=== PATIENT | female | born 1965 | race Caucasian/White ===

== ENCOUNTER 2024-01-26 18:16 | Inpatient (IN) | payer BC, MEDICAID ==
[~2024-01-26] VITALS: Ht 170.2 cm; Wt 96.1 kg
[~2024-01-26 18:16] MED LIST: ESTR0.1C5 VA; LEVO25TA9; LISI10TA34; MAGNTAB10; PROZAC; TRAZADONE
[2024-01-26 19:06] VITALS: RESP 24; O2SAT 93
[2024-01-26 19:19] LABS: Basophils # (auto) 0.1 10 ^3/uL (0-0.2); Basophils % (auto) 1.5 % (0.0-2.0); Eosinophils # (auto) 0.1 10 ^3/uL (0-0.8); Eosinophils % (auto) 1.8 % (0.0-7.0); Hemoglobin 10.2 g/dL (12.2-16.2); Lymphocytes # (auto) 1.4 10 ^3/uL (0.4-5.4); Lymphocytes % (auto) 23.7 % (10.0-50.0); Mean Corpuscular Hemoglobin 28.5 pg (28.0-32.0); Mean Corpuscular Hgb Conc. 31.8 g/dL (32.0-36.0); Mean Corpuscular Volume 89.7 fL (80.0-100.0); Monocytes # (auto) 0.7 10 ^3/uL (0-1.3); Monocytes % (auto) 11.7 % (0.0-12.0); Neutrophils # (auto) 3.7 10 ^3/uL (1.6-8.6); Neutrophils % (auto) 61.3 % (37.0-80.0); Nucleated Red Blood Cells % 0.5 %; Red Blood Cells 3.57 10^6/uL (4.0-5.20); White Blood Cell 6.1 10^3/uL (4.4-10.8)
[2024-01-26 19:26] LABS: Chloride 112 mmol/L (98-107); Potassium 3.3 mmol/L (3.5-5.1); Sodium 139 mmol/L (136-145)
[2024-01-26 19:27] LABS: Anion Gap 12 (5-15); Carbon Dioxide 15 mmol/L (20-30)
[2024-01-26 19:32] LABS: BUN/Creatinine Ratio 12.1 (10.0-20.0); Blood Urea Nitrogen 49 mg/dL (9-23); Glucose 86 mg/dL (74-106)
[2024-01-26 19:39] LABS: Calcium 5.4 mg/dL (8.7-10.4)
[2024-01-26] MEDS: ALBUTEROL SULF 2.5 MG/0.5ML(0.5%) NEB SOLN NEB ONE (19:42)
[2024-01-26] MEDS: IPRATROPIUM BROM 0.5 MG/2.5ML INH SOL NEB ONE (19:43)
[2024-01-26 20:00] VITALS: PULSE 71; RESP 16; O2SAT 90
[2024-01-26] MEDS: AZITHROMYCIN 250 MG TAB PO ONE (20:20)
[2024-01-26] MEDS: cefTRIAXone 1GM/50ML D5W 50 ML IV ONE (20:21)
[2024-01-26] MEDS: methylPREDNISolone SOD SUCC 125 MG/2 ML VL IV ONE (20:21)
[2024-01-26] MEDS ORDERED: ONDANSETRON HCL 4 MG/2 ML VIAL IV PRN (21:30)
[2024-01-26] MEDS ORDERED: ACETAMINOPHEN 325 MG TAB PO PRN (21:30)
[2024-01-26] MEDS ORDERED: MORPHINE SULFATE INJ 2 MG/ml SYRG IV PRN (21:30)
[2024-01-26] MEDS ORDERED: NITROGLYCERIN 0.4 MG SL TAB SL PRN (21:30)
[2024-01-26] MEDS ORDERED: DOCUSATE SOD 100 MG CAP PO PRN (21:30)
[2024-01-26] MEDS: CALCIUM GLUC 1,000mg/50ml-NS 50 ML IV SCH (21:51)
[2024-01-26 22:09] VITALS: BP 120/77; PULSE 72; RESP 18; TEMP 99; O2SAT 93
[2024-01-26] MEDS ORDERED: MORPHINE SULFATE 4 MG/ML SYR/VIAL IV PRN (22:30)
[2024-01-27 01:25] VITALS: PULSE 75; RESP 20; O2SAT 92
[2024-01-27 01:35] LABS: Base Excess -14.7 mmol/L (-2.0-2.0)
[2024-01-27] MEDS: BUMETANIDE 2.5mg/10ml (0.25 mg/ml) INJ IV ONE (02:32)
[2024-01-27 02:39] LABS: Urine Bacteria FEW /hpf (None Seen); Urine Blood 1+ /uL (Negative); Urine Clarity Ex.Turbid (Clear); Urine Color Light-Brown (Yellow); Urine Protein, UAD 1+ (Negative); Urine Specific Gravity 1.007 (1.001-1.035); Urine Urobilinogen Normal (Negative); Urine WBC 380 /hpf (0 - 5); Urine WBC Clumps PRESENT /hpf (None Seen); Urine pH 5.5 (5.0-9.0)
[2024-01-27] MEDS: SODIUM BICARB 50mEq/50ml Vial 100 ML in D5W 5% 1,000 ML IV ONE (02:44)
[2024-01-27] MEDS: SODIUM BICARB 8.4% 50Meq/50ml SYR Vial IV ONE ×2 (02:45)
[2024-01-27 03:11] LABS: Basophils # (auto) 0 10 ^3/uL (0-0.2); Basophils % (auto) 0.2 % (0.0-2.0); Eosinophils # (auto) 0 10 ^3/uL (0-0.8); Eosinophils % (auto) 0.1 % (0.0-7.0); Hemoglobin 10.4 g/dL (12.2-16.2); Lymphocytes # (auto) 0.3 10 ^3/uL (0.4-5.4); Lymphocytes % (auto) 8.9 % (10.0-50.0); Mean Corpuscular Hemoglobin 28.4 pg (28.0-32.0); Mean Corpuscular Hgb Conc. 31.5 g/dL (32.0-36.0); Mean Corpuscular Volume 90.2 fL (80.0-100.0); Monocytes # (auto) 0.1 10 ^3/uL (0-1.3); Monocytes % (auto) 1.3 % (0.0-12.0); Neutrophils # (auto) 3.5 10 ^3/uL (1.6-8.6); Neutrophils % (auto) 89.5 % (37.0-80.0); Red Blood Cells 3.66 10^6/uL (4.0-5.20); Red Cell Distribution Width 19.9 % (11.8-14.3); White Blood Cell 3.9 10^3/uL (4.4-10.8)
[2024-01-27 03:21] LABS: Chloride 111 mmol/L (98-107); Potassium 3.5 mmol/L (3.5-5.1); Sodium 139 mmol/L (136-145)
[2024-01-27 03:22] LABS: Anion Gap 13 (5-15); Calcium 6.2 mg/dL (8.7-10.4); Carbon Dioxide 15 mmol/L (20-30)
[2024-01-27 03:27] LABS: BUN/Creatinine Ratio 11.3 (10.0-20.0); Blood Urea Nitrogen 47 mg/dL (9-23); Glucose 154 mg/dL (74-106)
[2024-01-27] MEDS: CALCIUM GLUC 1,000mg/50ml-NS 50 ML IV ONE (04:38)
[2024-01-27 06:25] VITALS: O2SAT 97
[2024-01-27] MEDS: BUMETANIDE 2.5mg/10ml (0.25 mg/ml) INJ IV SCH (06:39)
[2024-01-27 07:42] VITALS: PULSE 69; RESP 19; O2SAT 95
[2024-01-27 08:11] LABS: Magnesium 1.8 mg/dL (1.6-2.6)
[2024-01-27 08:42] LABS: Amphetamine Screen, Urine Pos (NEGATIVE); Barbiturate Scree,Urine Neg (NEGATIVE)
[2024-01-27 08:43] LABS: Benzodiazephine Screen, Urine Neg (NEGATIVE); Cocaine Screen, Urine Neg (NEGATIVE)
[2024-01-27 08:44] LABS: Cannabinoid Screen, Urine Neg (NEGATIVE); Opiate Scree,Urine Neg (NEGATIVE); Phencyclidine Screen, Urine Neg (NEGATIVE)
[2024-01-27 17:48] VITALS: O2SAT 92
[2024-01-27] MEDS: cefTRIAXone 1GM/50ML D5W 50 ML IV SCH (20:06)
[2024-01-27] MEDS: AZITHROMYCIN 500MG/ 250ML 250 ML IV SCH (20:07)
[2024-01-27 21:00] VITALS: BP 101/59; PULSE 75; RESP 20; TEMP 96.1; O2SAT 92
[2024-01-27] MEDS: POTASSIUM CHL 10 Meq TABLET PO SCH (23:35)
[2024-01-27] MEDS: SODIUM BICARBONATE 650 MG TAB PO SCH (23:35)
[2024-01-27] MEDS: IPRATROPIUM BROM 0.5 MG/2.5ML INH SOL NEB PRN (23:55)
[2024-01-27 23:56] VITALS: PULSE 80; RESP 24; O2SAT 93
[2024-01-27] MEDS: ALBUTEROL SULF 2.5 MG/0.5ML(0.5%) NEB SOLN NEB PRN (23:56)
[2024-01-28] VITALS (13 sets, daily range): BP systolic 100–114; BP diastolic 59–79; PULSE 72–105; RESP 19–22; TEMP 96.1–98.4; O2SAT 81–100
[2024-01-28] MEDS ORDERED: AMLO1TAB23 PO (01:31)
[2024-01-28] MEDS ORDERED: ALBU108A5 PO (01:31)
[2024-01-28] MEDS ORDERED: GABA-1250 PO (01:31)
[2024-01-28] MEDS ORDERED: FUR20T PO (01:31)
[2024-01-28 06:14] LABS: Basophils # (auto) 0 10 ^3/uL (0-0.2); Basophils % (auto) 0.4 % (0.0-2.0); Eosinophils # (auto) 0 10 ^3/uL (0-0.8); Eosinophils % (auto) 0.7 % (0.0-7.0); Hematocrit 32.4 % (36.0-46.0); Hemoglobin 10.3 g/dL (12.2-16.2); Lymphocytes # (auto) 1.4 10 ^3/uL (0.4-5.4); Lymphocytes % (auto) 18.7 % (10.0-50.0); Mean Corpuscular Hemoglobin 28.6 pg (28.0-32.0); Mean Corpuscular Hgb Conc. 31.8 g/dL (32.0-36.0); Mean Corpuscular Volume 90.2 fL (80.0-100.0); Monocytes # (auto) 0.8 10 ^3/uL (0-1.3); Monocytes % (auto) 11.2 % (0.0-12.0); Neutrophils # (auto) 5.2 10 ^3/uL (1.6-8.6); Nucleated Red Blood Cells % 0.7 %; Red Blood Cells 3.59 10^6/uL (4.0-5.20); Red Cell Distribution Width 20.2 % (11.8-14.3); White Blood Cell 7.5 10^3/uL (4.4-10.8)
[2024-01-28 06:33] LABS: Alanine Aminotransferase 19 U/L (7-40); Albumin 3.1 g/dL (3.2-4.8); Alkaline Phosphatase 143 U/L (46-116); Anion Gap 12 (5-15); Aspartate Aminotransferase 29 U/L (13-40); Bilirubin, Total 0.3 mg/dL (0.2-1.0); Blood Urea Nitrogen 53 mg/dL (9-23); Carbon Dioxide 18 mmol/L (20-30); Chloride 112 mmol/L (98-107); Glucose 89 mg/dL (74-106); Phosphorus 9.2 mg/dL (2.4-5.1); Potassium 3.3 mmol/L (3.5-5.1); Sodium 142 mmol/L (136-145)
[2024-01-28 06:50] LABS: Calcium 5.9 mg/dL (8.7-10.4)
[2024-01-28] MEDS: CALCIUM CARB 500 MG CHEW TAB PO SCH (11:26)
[2024-01-28] MEDS: POTASSIUM CHL 10 Meq TABLET PO SCH (11:26)
[2024-01-28] MEDS: HYDROcodone-ACET 5/325MG TAB PO PRN (11:29)
[2024-01-28] MEDS: CALCIUM GLUC 1,000mg/50ml-NS 50 ML IV ONE (14:33)
[2024-01-28] MEDS: BUMETANIDE 2.5mg/10ml (0.25 mg/ml) INJ IV SCH (16:05)
[2024-01-28] MEDS: CALCIUM ACETATE 667 MG CAP PO SCH (18:25)
[2024-01-29] VITALS (14 sets, daily range): BP systolic 118–135; BP diastolic 81–88; PULSE 75–138; RESP 18–22; TEMP 97.4–98.3; O2SAT 90–99
[2024-01-29 06:24] LABS: Basophils # (auto) 0 10 ^3/uL (0-0.2); Eosinophils # (auto) 0.1 10 ^3/uL (0-0.8); Eosinophils % (auto) 0.8 % (0.0-7.0); Lymphocytes # (auto) 1.5 10 ^3/uL (0.4-5.4); Neutrophils # (auto) 5.2 10 ^3/uL (1.6-8.6); White Blood Cell 7.6 10^3/uL (4.4-10.8)
[2024-01-29 06:25] LABS: Basophils % (auto) 0.6 % (0.0-2.0); Hematocrit 36.6 % (36.0-46.0); Lymphocytes % (auto) 19.6 % (10.0-50.0); Mean Corpuscular Hemoglobin 28.6 pg (28.0-32.0); Mean Corpuscular Volume 95.4 fL (80.0-100.0); Monocytes # (auto) 0.8 10 ^3/uL (0-1.3); Monocytes % (auto) 10.8 % (0.0-12.0); Neutrophils % (auto) 68.2 % (37.0-80.0); Nucleated Red Blood Cells % 0.4 %; Red Blood Cells 3.83 10^6/uL (4.0-5.20)
[2024-01-29 06:27] LABS: Red Cell Distribution Width 20.9 % (11.8-14.3)
[2024-01-29 06:34] LABS: Chloride 114 mmol/L (98-107); Sodium 141 mmol/L (136-145)
[2024-01-29 06:35] LABS: Anion Gap 11 (5-15); Carbon Dioxide 16 mmol/L (20-30)
[2024-01-29 06:40] LABS: BUN/Creatinine Ratio 9.9 (10.0-20.0); Glucose 87 mg/dL (74-106)
[2024-01-29 06:41] LABS: Magnesium 1.8 mg/dL (1.6-2.6)
[2024-01-29 06:44] LABS: Blood Urea Nitrogen 38 mg/dL (9-23)
[2024-01-29] MEDS: CALCIUM GLUC 1,000mg/50ml-NS 50 ML IV ONE (09:01)
[2024-01-29] MEDS: AMIODARONE BOLUS KIT 100 ML IV ONE (09:04)
[2024-01-29] MEDS: AMIODARONE 450mg/250ml AE 250 ML IV SCH ×2 (09:30→15:13)
[2024-01-29] MEDS: SILDENAFIL CITRATE 20 MG TAB PO SCH (15:13)
[2024-01-29] MEDS: FUROSEMIDE 40 MG/4 ML VIAL IV ONE (15:28)
[2024-01-29] MEDS ORDERED: LEVO100T8 PO (16:06)
[2024-01-29] MEDS ORDERED: CARV3.1240 PO (16:11)
[2024-01-30] VITALS (10 sets, daily range): BP systolic 100–138; BP diastolic 55–90; PULSE 72–80; RESP 15–21; TEMP 97.8–98.4; O2SAT 85–94
[2024-01-30 07:04] LABS: Basophils # (auto) 0 10 ^3/uL (0-0.2); Basophils % (auto) 0.7 % (0.0-2.0); Eosinophils # (auto) 0.1 10 ^3/uL (0-0.8); Eosinophils % (auto) 2.4 % (0.0-7.0); Hematocrit 33.1 % (36.0-46.0); Hemoglobin 10.6 g/dL (12.2-16.2); Lymphocytes # (auto) 1.3 10 ^3/uL (0.4-5.4); Lymphocytes % (auto) 23.2 % (10.0-50.0); Mean Corpuscular Hemoglobin 29.1 pg (28.0-32.0); Mean Corpuscular Hgb Conc. 31.8 g/dL (32.0-36.0); Mean Corpuscular Volume 91.5 fL (80.0-100.0); Monocytes # (auto) 0.7 10 ^3/uL (0-1.3); Monocytes % (auto) 13.5 % (0.0-12.0); Neutrophils # (auto) 3.3 10 ^3/uL (1.6-8.6); Neutrophils % (auto) 60.2 % (37.0-80.0); Nucleated Red Blood Cells % 0.1 %; Red Blood Cells 3.62 10^6/uL (4.0-5.20); White Blood Cell 5.5 10^3/uL (4.4-10.8)
[2024-01-30 07:06] LABS: Red Cell Distribution Width 20.5 % (11.8-14.3)
[2024-01-30 07:21] LABS: Anion Gap 10 (5-15); Calcium 6.7 mg/dL (8.5-10.1); Carbon Dioxide 19 mmol/L (20-30); Chloride 109 mmol/L (98-107); Sodium 138 mmol/L (136-145)
[2024-01-30 07:27] LABS: BUN/Creatinine Ratio 13.4 (10.0-20.0); Blood Urea Nitrogen 45 mg/dL (9-23); Glucose 149 mg/dL (74-106)
[2024-01-30] MEDS: ASPirin-EC 81 mg tab PO SCH (12:24)
[2024-01-30] MEDS: ENOXAPARIN SOD 30 MG/0.3 ML SYRINGE SC SCH (15:35)
[2024-01-30] MEDS: AMIODARONE HCL 200 MG TAB PO ONE (15:35)
[2024-01-30] MEDS ORDERED: SILD20TA PO (15:39)
[2024-01-30] MEDS ORDERED: CARV3.1240 PO (15:39)
[2024-01-30] MEDS ORDERED: FURO40TA4 PO (15:39)
[2024-01-30] MEDS ORDERED: IPRA0.00 IN (15:39)
[2024-01-30] MEDS ORDERED: ASPI81TA28 PO (15:39)
[2024-01-30] MEDS ORDERED: POTA-36 PO (15:39)
[2024-01-30] MEDS ORDERED: AMIO200T33 PO (15:39)
[2024-01-30] MEDS: BUMETANIDE 1 MG TAB PO SCH (18:15)
[2024-01-30] MEDS: AMIODARONE HCL 200 MG TAB PO SCH (22:13)
[2024-01-31] MEDS ORDERED: ASPirin-EC 325mg tab PO SCH (10:00)
== END 2024-01-30 23:35 | disposition home or self-care (01) | DRG 291 ==
LOC: ER 18:16 → EDBD 18:16 → TELE 21:43 → TELE-EAST 01-27 22:05
PROVIDERS: ADMIT Nurse Practitioner Family; ATTEND Nurse Practitioner Family
PROC: 0W993ZZ Drainage of Right Pleural Cavity, Percutaneous Approach (ICD-10-PCS; principal; 2024-01-28)
DX: I13.0 Hypertensive heart and chronic kidney disease with heart failure and stage 1 through stage 4 chronic kidney disease, or unspecified chronic kidney disease (principal); I50.33 Acute on chronic diastolic (congestive) heart failure; J96.21 Acute and chronic respiratory failure with hypoxia; J44.1 Chronic obstructive pulmonary disease with (acute) exacerbation; N18.4 Chronic kidney disease, stage 4 (severe); N17.9 Acute kidney failure, unspecified; N39.0 Urinary tract infection, site not specified; E87.22 Chronic metabolic acidosis; J44.0 Chronic obstructive pulmonary disease with (acute) lower respiratory infection; E87.6 Hypokalemia; E83.51 Hypocalcemia; E03.9 Hypothyroidism, unspecified; F15.10 Other stimulant abuse, uncomplicated; F17.210 Nicotine dependence, cigarettes, uncomplicated; I08.3 Combined rheumatic disorders of mitral, aortic and tricuspid valves; I48.91 Unspecified atrial fibrillation; I27.29 Other secondary pulmonary hypertension; I70.0 Atherosclerosis of aorta; Z79.899 Other long term (current) drug therapy; Z79.82 Long term (current) use of aspirin; Z99.81 Dependence on supplemental oxygen
CPT/HCPCS: 32555; 36415; 36600; 71045; 71250; 74176; 76775; 80048; 80053; 80061; 80307; 81001; 82805; 83036; 83735; 83880; 83970; 84100; 84443; 84484; 85025; 93005; 93306; 94640; 97110; 97116; 97163; 97530; 99291; G0378